=== PATIENT | female | born 1990 | race African-American/Black ===

== ENCOUNTER 2019-12-16 13:20 | Emergency (ER) | payer MEDICAID, SELFPAY ==
[2019-12-16 13:30] VITALS: BP 151/93; PULSE 95; RESP 16; TEMP 37.6; O2SAT 100
--- NOTE | 2019-12-16 13:57 | ED.URI ---
HPI - URI/Sore Throat General Chief Complaint: Upper Respiratory Infection Stated Complaint: Body Aches/Diarrhea/Vomiting Time Seen by Provider: 12/16/19 13:43 Source: patient and RN notes reviewed Mode of arrival: ambulatory Limitations: no limitations History of Present Illness HPI Narrative: Patient presents today complaining of sore throat, body aches, sweats, chills, diarrhea, and vomiting since last night. 1 episode of vomiting, 2 episodes of diarrhea. Unsure if she had a fever. Denies cough or shortness of breath. She has been taking Tylenol and Coricidin with mild relief. Reports daughter was recently diagnosed with strep throat. MD elicited complaint: sore throat and other (Vomiting and diarrhea) Related Data Home Medications Medication Instructions Recorded Confirmed levonorgestrel [Mirena] 1 device INTRAUTERINE ONCE 12/16/19 12/16/19 Allergies Allergy/AdvReac Type Severity Reaction Status Date / Time No Known Allergies Allergy Unverified 12/16/19 13:40 Review of Systems Review of Systems: Narrative: CONSTITUTIONAL: + Body aches, chills, sweats EYES: Denies visual changes, redness, or discharge. ENT: Denies rhinorrhea, congestion, or otalgia.+ Sore throat CARDIOVASCULAR: Denies chest pain, palpitations, or edema. RESPIRATORY: Denies cough or dyspnea. GASTROINTESTINAL: Denies abdominal pain, nausea. + Vomiting, diarrhea GENITOURINARY: Denies dysuria or hematuria. SKIN: Denies rash, itching, or wounds. MUSCULOSKELETAL: Denies back pain, joint pain, or myalgia. NEUROLOGIC: Denies headache, numbness, tingling, or weakness. PSYCH: Denies depression or anxiety. [facility] Surgical History Surgical History (Updated 10/03/19 @ 14:36 by Shemar Vega PA-C) Previous section Social History Social History Smoking status: Never smoker Gender identity (if verbalized by the patient): Female Comments At time of signature, I have reviewed and agree with nursing past medical, surgical, social and family history unless otherwise noted. Please see nursing chart for further information. There is no relevant family history pertinent to the presenting complaint Exam Narrative: Exam Narrative: GENERAL: Well-appearing, well-nourished, and in no acute distress. HEAD: Normocephalic, atraumatic. EYES: EOMI. No redness or drainage. Conjunctivae normal. ENT: Mucous membranes pink and moist. Nares clear. No rhinorrhea. TMs normal bilaterally. Throat mildly erythematous and edematous without exudate. Uvula midline. NECK: Normal AROM. Supple. No lymphadenopathy. CHEST: No respiratory distress. Clear to auscultation. HEART: Regular rate and rhythm. No murmur appreciated. Normal peripheral pulses. ABDOMEN: Soft, nontender, nondistended, normal active bowel sounds. EXTREMITIES: Normal range of motion. No edema. SKIN: Warm, dry, no rash. NEURO: No focal deficits. Alert and oriented x3. Gait steady. PSYCH: Normal affect. No signs of depression or anxiety. Course Vital Signs Vital signs: Vital Signs Temperature 99.7 F H 12/16/19 13:30 Pulse Rate 95 12/16/19 13:30 Respiratory Rate 16 12/16/19 13:30 Blood Pressure 151/93 H 12/16/19 13:30 Pulse Oximetry 100 12/16/19 13:30 Temperature 99.7 F H 12/16/19 13:30 Pulse Rate 95 12/16/19 13:30 Respiratory Rate 16 12/16/19 13:30 Blood Pressure 151/93 H 12/16/19 13:30 Pulse Oximetry 100 12/16/19 13:30 Reviewed. Pt has been instructed to follow up with her PCP regarding her elevated blood pressure today. MDM - URI/Sore Throat Differential Diagnosis Differential diagnosis: Likely upper respiratory infection, otitis media, influenza, pharyngitis and other (Sore throat) Lab Data Attestation: I reviewed the patient's lab results. Labs: Influenza A Screen Negative Reference Range: Negative Influenza B Screen Negative Reference Range: Negat
== END 2019-12-16 14:20 | disposition home or self-care (01) ==
PROVIDERS: Emergency Provider Nurse Practitioner; PCP Family Medicine
DX: B34.9 Viral infection, unspecified (principal)
CPT/HCPCS: 87081; 87804; 87880; 99213; G0463

== ENCOUNTER 2024-11-24 09:26 | Emergency (ER) | payer BC, OTHER, SELFPAY ==
[2024-11-24 09:48] VITALS: BP 154/99; PULSE 71; RESP 16; TEMP 36.6; O2SAT 100
--- NOTE | 2024-11-24 09:57 | ED.URI ---
HPI - URI/Sore Throat General Stated Complaint: HBP Time Seen by Provider: 11/24/24 10:09 Source: patient, RN notes reviewed and old records reviewed Mode of arrival: ambulatory Limitations: no limitations History of Present Illness HPI Narrative: Patient presents with concerns about her blood pressure and requesting a work note. She reports that she is prescribed nifedipine, has plenty of it, says that she forgets to take it frequently. Says that over the weekend she had blood pressure elevated in the 180 systolic. She denies any chest pain or shortness of breath. She has not taken her medications since yesterday. She has no other concerns Related Data Home Medications ?Medication ?Instructions ?Recorded ?Confirmed ?Last Taken ?Type levonorgestrel (Mirena) 1 device intrauterine ONCE 12/16/19 06/20/23 Unknown History nifedipine 30 mg tablet,extended 30 mg PO DAILY 05/24/22 06/20/23 Unknown History release Allergies Allergy/AdvReac Type Severity Reaction Status Date / Time No Known Allergies Allergy Unverified 06/20/23 16:25 Review of Systems Review of Systems: All systems reviewed & are unremarkable except as noted in HPI and below Constitutional: Constitutional: Reports no additional constitutional complaints ENT: Reports system reviewed and no additional complaints, except as documented Cardiovascular: Cardiovascular: Reports no additional cardiovascular complaints and Reports other (Hypertension) Respiratory: Respiratory: Reports no additional respiratory complaints Gastrointestinal: Gastrointestinal: Reports no additional gastrointestinal complaints [facility] Past Medical History Medical History High blood pressure Surgical History Surgical History H/O gynecological procedure mirena iud insertion - 2019 Previous section Social History Social History Smoking status: Never smoker Alcohol intake: never Substance use: current Substance use type: marijuana Lack of Transportation: No Lack of Food: Never True Current Housing: I Have Housing Concerned About Future Housing: Decline to Answer Difficulty Paying Gas/Electric Bills: Decline to Answer Difficulty Paying for Meds: Decline to Answer Currently Unemployed: Decline to Answer Education: Decline to Answer Living arrangements: with family Occupation/Education: occupation Gender identity (if verbalized by the patient): Female Sexual Orientation (if Verbalized by the Patient): Straight or Heterosexual Comments At the time of my signature, I reviewed and agree with the nursing past medical, surgical, social, and family history. There is no relevant family history pertinent to the patient complaint. Exam Const: General: cooperative, no acute distress, alert and awake Orientation/consciousness: oriented to person, oriented to place and oriented to time HENMT: Head: normal to inspection Resp: Effort & Inspection: normal respiratory effort and able to speak in complete sentences Auscultation: clear to auscultation bilaterally, no crackles, no rales, no rhonchi and no wheezes Cardio: Palpation: normal PMI Rate: regular rate Rhythm: regular rhythm Heart sounds: S1 normal heart sound present and S2 normal heart sound present Neuro: General: oriented to person, oriented to place and oriented to time Cranial nerves: Yes CN's II-XII intact bilaterally Psych: Appearance: grossly normal Thought process: Normal thought process present Insight: Good insight present (Psych) Judgement: Good judgement present (Psych) Course Course Level of Care: Express Care Visit Vital Signs Vital signs: Vital Signs Temperature 97.8 F 11/24/24 09:48 Pulse Rate 71 11/24/24 09:48 Respiratory Rate 16 11/24/24 09:48 Blood Pressure 154/99 H 11/24/24 09:48 Pulse Oximetry 100 11/24/24 09:48 Oxygen Delivery Room Air 11/24/24 09:48 Temperature 97.8 F 11/24/24 09:48 Pulse Rate 71 11/24/24 09:48 Respiratory Rate 16 11/24/24 09:48 Blood Pressure 154/99 H 11/24/24 09:48 Pulse Oximetry 100 11/24/24 09:48 Oxygen Delivery Room Air 11/24/24 09:48 Reviewed MDM - URI/Sore Throat MDM Narrative Medical decision making narrative: Patient advised to take all medications as prescribed. Discharge instructions reviewed with patient, as well as provided in writing per nursing staff. The instructions also include specific and strict return/GO TO THE ER as well as f/u information. All questions have been answered, and the patient deny any further questions with discharge and discharge plan. Some parts of this dictation were generated by voice recognition software and may contain typographical and/or grammatical inaccuracies. Differential Diagnosis Differential diagnosis: Likely other (Hypertension, elevated blood pressure, noncompliance with medication regimen) Medical Records Attestation: I reviewed the patient's medical records. Discharge Plan Discharge Clinical Impression: HTN (hypertension) Qualifiers: Hypertension type: unspecified Qualified Code(s): I10 - Essential (primary) hypertension Patient Disposition: Home, Self-Care Condition: Stable Instructions: Antibiotic Form, Chronic Hypertension (ED) Additional Instructions: Use medications as prescribed. Follow with primary care provider. Emergency department for new or worse symptoms Patient Language: Belarusian Prescriptions: No Action Mirena 20 mcg/24 hours (5 yrs) 52 mg Intrauterine Device 1 device INTRAUTERINE ONCE nifedipine 30 mg tablet extended release 30 mg PO DAILY Follow-up/Referrals: PHYSICIAN,PROCESS ENVIRONMENTAL TECHNICIAN [Primary Care Provider] - Stand Alone Forms: Work/School Release IP Time of Disposition: 10:36
== END 2024-11-24 10:40 | disposition home or self-care (01) ==
PROVIDERS: Emergency Provider Nurse Practitioner Family
DX: I10 Essential (primary) hypertension (principal); F12.90 Cannabis use, unspecified, uncomplicated
CPT/HCPCS: 99211; G0463